=== PATIENT | male | born 1965 | race Caucasian/White ===

== ENCOUNTER 2016-05-23 12:10 | Emergency (ER) | payer OTHER ==
[2016-05-23] MEDS ORDERED: NITROGLYCERIN SL PRN (12:25)
[2016-05-23] MEDS ORDERED: ASPIRIN PO STA (12:25)
[2016-05-23] MEDS ORDERED: HEPARIN IV ONE (12:27)
[2016-05-23] MEDS ORDERED: NS 1,000 ML ONE (12:27)
--- NOTE | 2016-05-23 12:27 | PROVIDER DOCUMENTATION ---
HPI-Chest Pain - General Chief Complaint: Heart Alert Stated Complaint: CP Time Seen by Provider: 05/23/16 12:14 Source: patient, family Allergies/Adverse Reactions: Patient Allergies Allergy/AdvReac Type Severity Reaction Status Date / Time No Known Allergies Allergy Verified 05/23/16 12:27 Home Medications: Home Medication List Medication Instructions Recorded Confirmed Last Taken Type Citalopram Hydrobromide 40 mg PO DAILY 05/28/13 12/23/14 12/23/14 08:00 History [Citalopram HBr] Clopidogrel [Plavix] 75 mg PO DAILY 05/28/13 12/23/14 12/23/14 08:00 History Metoprolol Succinate E.r. [Toprol 100 mg PO DAILY 05/28/13 12/23/14 12/23/14 12: 00 History Xl] Niacin E.r. 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 Reports was putting up gutters at home took a break became sob and started having diaphoresis and then chest pain. Pt reports took two spray of nitro and 325 aspirin with no relief. Has 7-8 cardiac stents. Pt is a smoker. Location: reports: other (left anterior) Chest Pain Radiation: reports: no radiation Quality of Pain: reports: sharp Severity in ED: moderate Onset/Duration: 1/2 hour ago Timing: still present Nitro Today/Relief: 0.4 mg x 2, provided at home Aspirin Treatment Today: 325 mg x 1 Similar Symptoms Previously?: Yes Recently Seen Here or By Another Healthcare Provider: No Review of Systems - Adult - REVIEW OF SYSTEMS - ADULT Constitutional: denies: chills, fever, fatique Eyes: reports: no symptoms reported Ears, Nose, Mouth & Throat: reports: no symptoms reported Cardiovascular: reports: chest pain. denies: irregular heart rate, orthopnea, syncope Respiratory: reports: shortness of breath. denies: chronic cough, cough, pleurisy, wheezing Gastrointestinal: denies: abdominal pain, diarrhea, nausea, vomiting Genitourinary: reports: no symptoms reported Musculoskeletal: reports: no symptoms reported Integumentary: reports: no symptoms reported Neurological: denies: dizziness/vertigo, headache/migraines, numbness, paresthesia, tremors Psychiatric: reports: no symptoms reported Endocrine: reports: no symptoms reported Hematologic/Lymphatic: reports: no symptoms reported Allergic/Immunologic: reports: no symptoms reported All Other Systems: Reviewed and Negative Past History - Adult - PAST MEDICAL HISTORY-ADULT Review of Records: reports: Nursing Assessment Review, Medications Reviewed Major Childhood Illnesses: reports: denies history Cardiovascular: reports: CAD, CHF, HTN, hyperlipidemia Psychiatric: reports: bipolar, other (Previous Suicidal attempts) - PRIOR SURGERIES/PROCEDURES Surgical/Procedure History: reports: appendectomy, cardiac stent, orthopedic ( extremity) (bilateral and bilateral hip), joint replacement (total knee), other (athroscopy) - PRIOR HOSPITALIZATIONS Prior Hospitalizations: reports: for similar symptoms - IMMUNIZATION STATUS Childhood Immunizations: See Nurse Assessment Flu Vaccine: See Nurse Assessment - FAMILY HISTORY Family History: reviewed, not pertinent - SOCIAL HISTORY Smoking: cigarettes, less than 1 pack/day Provider spent 3-5 mins advising pt. on dangers of tobacco.: Discussed manners to quit use, and f/u contacts for add'l counseling. Substance Use: none/never Physical Exam-General - PHYSICAL EXAM-ADULT Initial Vital Signs Reviewed: Yes - CONSTITUTIONAL General Appearance: alert, mild distress. negative: appears well - EYES Eyes: PERRL/EOMI - NECK Neck: non-tender, full range of motion, supple, normal inspection - RESPIRATORY Respiratory: chest non-tender, lungs clear, normal breath sounds, no pleuratic chest pain, no respiratory distress, no accessory muscle use - CARDIOVASCULAR Cardiovascular: regular rate, rhythm, tachycardia - GASTROINTESTINAL (ABDOMEN) Abdominal Exam: non tender, soft, no organomegaly, no pulsatile mass, other ( midline well healed surgical scar) - MUSCULOSKELETAL Extremity: normal range of motion, non-tender, normal gait - SKIN Integumentary: normal turgor, warm/dry, pallor - PSYCHIATRIC Psych/Mental Status: normal mood/affect, normal thought content, normal thought process, oriented x 3 Progress - PLAN OF CARE/RESULTS Progress/Plan/Lab Results: Orders Category Date Time Status Cardiac Monitoring DIRECTED Care 05/23/16 12:26 Ordered Saline Loc NOW Care 05/23/16 12:26 Ordered CBC WITH ELECTRONIC DIFF [HEME] Stat Lab 05/23/16 12:26 Uncollected CK PROFILE [SP CHEM] Stat Lab 05/23/16 12:26 Uncollected COMPREHENSIVE METABOLIC PANEL [CHEM] Stat Lab 05/23/16 12:26 Uncollected D-DIMER [CHEM] Stat Lab 05/23/16 12:26 Uncollected MAGNESIUM [CHEM] Stat Lab 05/23/16 12:26 Uncollected EKG [EKG] Stat Ther 05/23/16 12:26 Ordered Vital Signs - 24 hr 05/23/16 12:16 Temperature 98.1 F Pulse Rate 128 H Respiratory 20 Rate Blood Pressure 150/108 O2 Sat by Pulse 95 Oximetry Laboratory Tests 05/23/16 05/23/16 05/23/16 12:16 12:16 12:16 WBC 14.25 H RBC 5.05 Hgb 14.9 Hct 44.9 MCV 88.9 MCH 29.5 MCHC 33.2 RDW Std Deviation 13.2 Plt Count 343 MPV 10.9 H Immature Gran % (Auto) 0.1 Neut % (Auto) 62.6 Lymph % (Auto) 25.7 Union % (Auto) 9.1 Eos % (Auto) 2.1 Baso % (Auto) 0.4 Immature Gran # (Auto) 0.02 Neut # (Auto) 8.92 H Lymph # (Auto) 3.66 H Union # (Auto) 1.30 H Eos # (Auto) 0.30 Baso # (Auto) 0.05 PT INR PTT (Actin FS) D-Dimer 1.16 H Sodium 140 Potassium 3.7 Chloride 104 Carbon Dioxide 17 L Anion Gap 19 BUN 9 Creatinine 0.8 Estimated GFR/1.73 m2 > 60 BUN/Creatinine Ratio 11 Glucose 117 H Calculated Osmolality 279 Calcium 9.7 Magnesium 1.6 Total Bilirubin 0.27 AST 23 ALT 41 Alkaline Phosphatase 122 Creatine Kinase 58 Troponin T [id number] Pept Total Protein 7.4 Albumin 3.9 Globulin 3.5 Albumin/Globulin Ratio 1.1 05/23/16 05/23/16 05/23/16 12:16 12:16 12:16 WBC RBC Hgb Hct MCV MCH MCHC RDW Std Deviation Plt Count MPV Immature Gran % (Auto) Neut % (Auto) Lymph % (Auto) Union % (Auto) Eos % (Auto) Baso % (Auto) Immature Gran # (Auto) Neut # (Auto) Lymph # (Auto) Union # (Auto) Eos # (Auto) Baso # (Auto) PT 9.9 INR 0.97 PTT (Actin FS) 26.3 D-Dimer Sodium Potassium Chloride Carbon Dioxide Anion Gap BUN Creatinine Estimated GFR/1.73 m2 BUN/Creatinine Ratio Glucose Calculated Osmolality Calcium Magnesium Total Bilirubin AST ALT Alkaline Phosphatase Creatine Kinase Troponin T < 0.010 Ucn-Y-Ombraimxwlz Pept 132 Total Protein Albumin Globulin Albumin/Globulin Ratio - EKG 1 Time of EKG reading by physician:: 12:14 EKG Read and Signed by:: Leigh Caceres EKG Interpretation (*Must complete 3 of following elements*): Abnormal ( inferior posterior infarct possibly acute :ACUTE SUDHAKAR/STEMI) Rate: 118 Rhythm: sinus tachy - CONSULTS/PCP/HOSPITALIST Notification #1 *Consult/PCP/Hospitalist*: Time Discussed: 12:30 (ACCEPTING PHYSICIAN AT [facility]) Departure - Departure Time of Disposition Order: 12:20 DIAGNOSIS: STEMI (ST elevation myocardial infarction) Qualifiers: Involved coronary artery: unspecified coronary artery Qualified Code(s): I21.3 - ST elevation (STEMI) myocardial infarction of unspecified site Disposition: [facility] 02 Certified Medical Emergency: Emergent Condition: Stable Referrals: Renato Salcido MD [Primary Care Provider] - - Critical Care Note Total Time (mins): 35 Critical Care Statement: This patient required my direct personal management to treat or rule out processes, the absence of which, could potentiallly result in sudden, clinically significant life or limb threatening deterioration. Attestation - Scribe Verification/Attestation Scribe:: Sameera Gutierrez Acting as Scribe for:: Leigh Caceres Scribe documention review:: This chart was documented by a scribe and accurately reflects the service the provider performed and the decisions made by the provider.
--- NOTE | 2016-05-23 12:30 | EKG Report ---
Test Performed on : 05/23/2016 12:14:17 PM Test Reason : Chest Pain Blood Pressure : / mmHG Vent. Rate : 118 BPM Atrial Rate : 118 BPM P-R Int : 136 ms QRS Dur : 090 ms QT Int : 328 ms P-R-T Axes : 071 005 078 degrees QTc Int : 459 ms Sinus tachycardia. Inferior-posterior infarct , possibly acute ACUTE DC / STEMI Abnormal ECG When compared with ECG of 25-DEC-2014 01:03, Vent. rate has increased BY 56 BPM Inferior-posterior infarct is now present ST elevation now present in Inferior leads ST now depressed in Anterior leads Unconfirmed Result
[2016-05-23 12:35] LABS: MANUAL DIFF NEEDED? NO
[2016-05-23 12:41] LABS: BASO% 0.4 % (0.0-0.8); EOS% 2.1 % (0.0-10.0); HEMATOCRIT 44.9 % (42.0-52.0); HEMOGLOBIN 14.9 g/dL (14.0-18.0); IMM GRAN# 0.02 X1000 (0.0-0.04); IMM GRAN% 0.1 % (0.0-0.5); LYMPH# 3.66 X1000 (1.2-3.4); LYMPH% 25.7 % (20.5-51.1); MCH 29.5 PG (27-31); MCHC 33.2 g/dL (33-37); MCV 88.9 FL (81-99); MONO% 9.1 % (1.7-9.3); MPV 10.9 FL (7.4-10.4); NEUT% 62.6 % (42.2-75.2); PLT 343 X1000 (130-400); RBC 5.05 XMIL (4.7-6.1)
[2016-05-23] MEDS ORDERED: MORPHINE ONE (12:45)
[2016-05-23] MEDS ORDERED: MORPHINE IV ONE (12:45)
[2016-05-23 12:52] VITALS: BP 136/91
[2016-05-23 12:56] LABS: AGAP 19; ALBUMIN 3.9 g/dL (3.5-5.0); ALKALINE PHOSPHATASE 122 U/L (32-122); BUN 9 mg/dL (8-22); CALCIUM 9.7 mg/dL (8.8-10.2); CHLORIDE 104 mmol/L (98-107); CK PROFILE 58 U/L (24-204); COSMO 279; GOT 23 U/L (10-34); GPT 41 U/L (10-44); MAGNESIUM 1.6 mg/dL (1.5-2.7); POTASSIUM 3.7 mmol/L (3.5-5.1); SODIUM 140 mmol/L (136-145); TCO2 17 mmol/L (25-35); TOTAL BILIRUBIN 0.27 mg/dL (0.20-1.00); TOTAL PROTEIN 7.4 g/dL (6.3-8.3)
[2016-05-23 13:01] LABS: PTT 26.3 Seconds (22.0-36.0)
[2016-05-23 13:02] LABS: INR 0.97; PROTIME 9.9 Seconds (9.2-11.7)
== END 2016-05-23 12:45 | disposition short-term general hospital (02) ==
LOC: ED 12:10
DX: I21.3 ST elevation (STEMI) myocardial infarction of unspecified site (principal); R07.9 Chest pain, unspecified; R06.02 Shortness of breath; I25.10 Atherosclerotic heart disease of native coronary artery without angina pectoris; I10 Essential (primary) hypertension; E78.5 Hyperlipidemia, unspecified; F31.9 Bipolar disorder, unspecified; Z95.5 Presence of coronary angioplasty implant and graft; Z96.659 Presence of unspecified artificial knee joint; F17.210 Nicotine dependence, cigarettes, uncomplicated; Z71.6 Tobacco abuse counseling; R00.0 Tachycardia, unspecified; Z79.899 Other long term (current) drug therapy; Z79.02 Long term (current) use of antithrombotics/antiplatelets
CPT/HCPCS: 80053; 82550; 83735; 83880; 84484; 85025; 85379; 85610; 85730; 93005; J1644; J2270; J7030